=== PATIENT | male | born 1990 | race Caucasian/White ===

== ENCOUNTER 2016-08-12 13:14 | Inpatient (IN) | payer OTHER, MEDICAID ==
[~2016-08-12 13:14] MED LIST: ABILIFY10 MG PO; BUSPIRONE HCL5 MG PO; XANAX0.25 MG PO; ZYRTEC10 MG PO; [UNRECOGNIZED DRUG - OTHER]
[2016-08-12] MEDS ORDERED: AMOXICILLIN500 M1 PO (13:39)
[2016-08-12] MEDS ORDERED: FLUVOXAMINE MA100 M3 PO (13:40)
[2016-08-12] MEDS ORDERED: ALPRAZOLAM ER1 M1 PO (13:40)
[2016-08-12] MEDS ORDERED: NALTREXONE HCL50 MG PO ×2 (13:41→18:27)
[2016-08-12] MEDS ORDERED: XANAX1 M1 PO (13:46)
[2016-08-12] MEDS ORDERED: BUSPIRONE HCL10 M2 PO (13:46)
[2016-08-12] MEDS ORDERED: SEROQUEL X300 MG/TAB PO ×2 (13:47→18:28)
[2016-08-12] MEDS ORDERED: REVIA50 M1 PO ×2 (14:41)
[2016-08-12 15:34] LABS: BASO % 0.1 % (0-2); EOS % 0.2 % (0-7); EOSINOPHIL ABSOLUTE COUNT 0.1 tho/cmm (0.0-0.7); HCT-HEMATOCRIT 44.5 % (36.0-53.5); HGB-HEMOGLOBIN 15.6 gm/dl (13.5-17.0); IMMATURE GRANULOCYTES ABSOLUTE 0.28 tho/cmm (0-0.03); LYMPH % 6.8 % (20-45); LYMPH ABSOLUTE COUNT 1.9 tho/cmm (0.8-4.5); MCH (MEAN CORPUSCULAR HGB) 30.4 pg (28.0-32.0); MCHC MEAN CORPUSCULAR HGB CONC 35.1 % (32.0-36.0); MCV (MEAN CELL VOLUME) 86.6 fl (82.0-96.0); MEAN PLATELET VOLUME 8.8 cmc (9.4-12.4); MONO % 8.2 % (0-12); MONOCYTE ABSOLUTE COUNT 2.4 tho/cmm (0.0-1.2); NEUTROPHILS % 83.7 % (40-80); PLATELET COUNT 298 tho/cmm (150-450); RED BLOOD COUNT 5.14 mil/cmm (4.40-5.70); RED CELL DISTRIBUTION WIDTH 12.1 % (12.4-16.4); WHITE BLOOD COUNT 28.7 tho/cmm (4.0-10.0)
[2016-08-12 15:56] LABS: ALB/GLOB RATIO 0.5 (0.8-2.0); ALBUMIN 2.9 g/dl (3.5-5.0); ALKALINE PHOSPHATASE 85 U/L (33-138); ALT/SGPT 40 U/L (12-78); BILIRUBIN,TOTAL 0.6 mg/dl (0.0-1.5); BLOOD UREA NITROGEN 17 mg/dl (6-24); CALCIUM 9.1 mg/dl (8.5-10.5); CARBON DIOXIDE-VENOUS 26 mmol/L (22-32); CHLORIDE 100 mmol/l (96-110); CREATININE 1.01 mg/dl (0.60-1.30); GLUCOSE 125 mg/dL (70-110); SODIUM 135 mmol/L (135-145); eGFR VALUE FOR BLACK >90 mL/Min
[2016-08-12 15:57] LABS: ANION GAP 14 mmol/L (0-20); AST/SGOT 42 U/L (10-40)
[2016-08-12 16:11] LABS: PROCALCITONIN 2.26 ng/ml (0.05-0.09)
[2016-08-12 17:04] LABS: INR 1.5 INR (0.9-1.1); PROTHROMBIN TIME 17.3 SECONDS (9.0-13.6)
[2016-08-12 17:15] LABS: ALB/GLOB RATIO 0.5 (0.8-2.0); ALBUMIN 2.8 g/dl (3.5-5.0); ALKALINE PHOSPHATASE 81 U/L (33-138); ALT/SGPT 39 U/L (12-78); ANION GAP 12 mmol/L (0-20); AST/SGOT 29 U/L (10-40); BILIRUBIN,TOTAL 0.6 mg/dl (0.0-1.5); BLOOD UREA NITROGEN 17 mg/dl (6-24); CALCIUM 8.3 mg/dl (8.5-10.5); CARBON DIOXIDE-VENOUS 26 mmol/L (22-32); CHLORIDE 101 mmol/l (96-110); CREATININE 0.85 mg/dl (0.60-1.30); GLUCOSE 136 mg/dL (70-110); POTASSIUM 5.6 mmol/L (3.7-5.1); SODIUM 133 mmol/L (135-145); eGFR VALUE FOR BLACK >90 mL/Min
[2016-08-12 17:39] LABS: PROCALCITONIN 2.01 ng/ml (0.05-0.09)
[2016-08-12] MEDS ORDERED: XANAX0.5 M1 PO (18:27)
[2016-08-12] MEDS ORDERED: MIRALAX17 G2 PO (18:27)
[2016-08-12] MEDS ORDERED: ZYRTEC10 M7 PO (18:28)
[2016-08-12] MEDS ORDERED: FISH OIL 11000 MG/CA PO (18:28)
[2016-08-12 19:54] LABS: ABG CO2 ARTERIAL 23 mmol/L (21-27); ARTERIAL BLD GAS O2 SATURATION 100 % (95-98); ARTERIAL BLOOD GAS PCO2 38 mmHg (32-45); ARTERIAL PO2 183 mmHg (70-100); BICARBONATE 22 mmol/L (21-28); BLOOD GAS BASE EXCESS -2 mM/L (-/+3); PH 7.38 Units (7.35-7.45)
[2016-08-12 19:55] LABS: BODY FLUID TYPE PLEURAL
[2016-08-12 20:07] LABS: BODY FLUID APPEARANCE CLOUDY (CLEAR); BODY FLUID COLOR YELLOW (COLORLESS); BODY FLUID RBC COUNT 14000 cmm (0); BODY FLUID TYPE RIGHT PLEURAL; BODY FLUID VOLUME 35 ml; BODY FLUID WBC COUNT 17831 cmm
[2016-08-12 20:21] LABS: BODY FLUID EOSINOPHILS 1 %; BODY FLUID LYMPHOCYTES 3 %; BODY FLUID NEUTROPHILS 96 %
[2016-08-12 22:31] LABS: URINE APPEARANCE CLEAR; URINE BILIRUBIN NEGATIVE (NEG); URINE BLOOD NEGATIVE (NEG); URINE COLOR YELLOW; URINE GLUCOSE (UA) NEGATIVE (NEG); URINE KETONE NEGATIVE (NEG); URINE LEUKOCYTE ESTERASE NEGATIVE (NEG); URINE NITRITE NEGATIVE (NEG); URINE PROTEIN NEGATIVE (NEG); URINE SPECIFIC GRAVITY 1.005 (1.003-1.030)
[2016-08-13 03:49] LABS: BASO % 0.1 % (0-2); EOS % 0.3 % (0-7); EOSINOPHIL ABSOLUTE COUNT 0.1 tho/cmm (0.0-0.7); HCT-HEMATOCRIT 35.5 % (36.0-53.5); HGB-HEMOGLOBIN 11.9 gm/dl (13.5-17.0); IMMATURE GRANULOCYTES ABSOLUTE 0.11 tho/cmm (0-0.03); IMMATURE GRANULOCYTES PERCENT 0.5 % (0-0.3); LYMPH % 6.4 % (20-45); LYMPH ABSOLUTE COUNT 1.5 tho/cmm (0.8-4.5); MCH (MEAN CORPUSCULAR HGB) 29.5 pg (28.0-32.0); MCHC MEAN CORPUSCULAR HGB CONC 33.5 % (32.0-36.0); MCV (MEAN CELL VOLUME) 87.9 fl (82.0-96.0); MEAN PLATELET VOLUME 8.7 cmc (9.4-12.4); MONO % 6.9 % (0-12); MONOCYTE ABSOLUTE COUNT 1.6 tho/cmm (0.0-1.2); NEUTROPHIL ABSOLUTE COUNT 19.6 tho/cmm (1.6-8.0); NEUTROPHIL-AUTOMATED 19.6 tho/cmm (1.6-8.0); NEUTROPHILS % 85.8 % (40-80); PLATELET COUNT 271 tho/cmm (150-450); RED BLOOD COUNT 4.04 mil/cmm (4.40-5.70); RED CELL DISTRIBUTION WIDTH 12.3 % (12.4-16.4); WHITE BLOOD COUNT 22.9 tho/cmm (4.0-10.0)
[2016-08-13 04:02] LABS: BLOOD UREA NITROGEN 12 mg/dl (6-24); CARBON DIOXIDE-VENOUS 21 mmol/L (22-32); CHLORIDE 115 mmol/l (96-110); CREATININE 0.52 mg/dl (0.60-1.30); GLUCOSE 105 mg/dL (70-110); SODIUM 143 mmol/L (135-145); eGFR VALUE FOR BLACK >90 mL/Min
[2016-08-13 04:12] LABS: ANION GAP 11 mmol/L (0-20); CALCIUM 6.2 mg/dl (8.5-10.5); POTASSIUM 3.7 mmol/L (3.7-5.1)
[2016-08-13 05:34] LABS: ABG CO2 ARTERIAL 24 mmol/L (21-27); ARTERIAL BLD GAS O2 SATURATION 99 % (95-98); ARTERIAL BLOOD GAS PCO2 38 mmHg (32-45); ARTERIAL PO2 129 mmHg (70-100); BICARBONATE 22 mmol/L (21-28); BLOOD GAS BASE EXCESS -2 mM/L (-/+3); PH 7.39 Units (7.35-7.45)
[2016-08-13 05:46] LABS: PROCALCITONIN 1.64 ng/ml (0.05-0.09)
--- NOTE | 2016-08-13 06:02 | NUR ---
08/12/16- 193: BP 81/43 PROPOFOL PAUSED FOR HYPOTENSION. 1939: RADIOLOGIST CONFIRMED PLACEMENT OF ETT, NGT, AND CENTRAL LINE. OKAY TO USE. 1944: 89/58 PROPOFOL STARTED AT 20 MCG/KG/MIN. 08/13/16- 339: 86/47 PROPOFOL DECREASED TO 10 MCG/KG/MIN 0345: FENTANYL INCREASED TO 50MG/HR. 0350: NOTIFIED IMS OF HYPOTENSION, RECOMMENDATION TO CALL . 0356: DR. PAGAN NOTIFIED OF BP 89/42 MAP 58, CVP OF 14, AND LABILE BP IN LAST FEW HOURS. ORDER TO START LEVOPHED TO KEEP SBP >90. 0415: DG RODIRGUEZ APRN FOR IMS NOTIFIED OF CRITICAL CA2+ OF 6.2. ORDER FOR AN IONIZED CA2+. 0429: LEVOPHED GTT ON AT 0.03 MCG/KG/MIN 0442: INCREASED PROPOFOL TO 30 MCG/KG/ MIN BP 104/58 MAP 71, PT IS PULLING AT TUBES, SHAKING HEAD BACK AND FOURTH AND KICKING LEGS, AGITATED. 0601: IONIZED CA2+ PAGED TO DG RODRIGUEZ APRN.
[2016-08-14 04:22] LABS: ABG CO2 ARTERIAL 27 mmol/L (21-27); ARTERIAL BLD GAS O2 SATURATION 97 % (95-98); ARTERIAL BLOOD GAS PCO2 44 mmHg (32-45); BICARBONATE 25 mmol/L (21-28); BLOOD GAS BASE EXCESS 0 mM/L (-/+3); PH 7.38 Units (7.35-7.45)
[2016-08-14 04:25] LABS: ARTERIAL PO2 92 mmHg (70-100)
[2016-08-14 04:50] LABS: BASO % 0.1 % (0-2); HCT-HEMATOCRIT 32.5 % (36.0-53.5); HGB-HEMOGLOBIN 10.6 gm/dl (13.5-17.0); IMMATURE GRANULOCYTES ABSOLUTE 0.08 tho/cmm (0-0.03); IMMATURE GRANULOCYTES PERCENT 0.5 % (0-0.3); LYMPH % 5.9 % (20-45); MCHC MEAN CORPUSCULAR HGB CONC 32.6 % (32.0-36.0); MEAN PLATELET VOLUME 8.7 cmc (9.4-12.4); MONO % 6.7 % (0-12); MONOCYTE ABSOLUTE COUNT 1.2 tho/cmm (0.0-1.2); NEUTROPHIL ABSOLUTE COUNT 15.3 tho/cmm (1.6-8.0); NEUTROPHIL-AUTOMATED 15.3 tho/cmm (1.6-8.0); NEUTROPHILS % 86.8 % (40-80); PLATELET COUNT 287 tho/cmm (150-450); RED BLOOD COUNT 3.65 mil/cmm (4.40-5.70); RED CELL DISTRIBUTION WIDTH 12.4 % (12.4-16.4); WHITE BLOOD COUNT 17.6 tho/cmm (4.0-10.0)
[2016-08-14 04:56] LABS: ANION GAP 9 mmol/L (0-20); BLOOD UREA NITROGEN 12 mg/dl (6-24); CARBON DIOXIDE-VENOUS 28 mmol/L (22-32); CHLORIDE 109 mmol/l (96-110); CREATININE 0.67 mg/dl (0.60-1.30); POTASSIUM 4.1 mmol/L (3.7-5.1); SODIUM 142 mmol/L (135-145); eGFR VALUE FOR BLACK >90 mL/Min
[2016-08-14 05:01] LABS: CALCIUM 7.9 mg/dl (8.5-10.5); GLUCOSE 162 mg/dL (70-110)
[2016-08-15 04:53] LABS: BASO % 0.1 % (0-2); EOS % 0.6 % (0-7); EOSINOPHIL ABSOLUTE COUNT 0.1 tho/cmm (0.0-0.7); HCT-HEMATOCRIT 30.3 % (36.0-53.5); HGB-HEMOGLOBIN 9.8 gm/dl (13.5-17.0); IMMATURE GRANULOCYTES ABSOLUTE 0.11 tho/cmm (0-0.03); IMMATURE GRANULOCYTES PERCENT 0.8 % (0-0.3); LYMPH % 16.2 % (20-45); LYMPH ABSOLUTE COUNT 2.2 tho/cmm (0.8-4.5); MCH (MEAN CORPUSCULAR HGB) 29.2 pg (28.0-32.0); MCHC MEAN CORPUSCULAR HGB CONC 32.3 % (32.0-36.0); MCV (MEAN CELL VOLUME) 90.2 fl (82.0-96.0); MEAN PLATELET VOLUME 8.6 cmc (9.4-12.4); MONO % 6.4 % (0-12); MONOCYTE ABSOLUTE COUNT 0.9 tho/cmm (0.0-1.2); NEUTROPHIL ABSOLUTE COUNT 10.2 tho/cmm (1.6-8.0); NEUTROPHIL-AUTOMATED 10.2 tho/cmm (1.6-8.0); NEUTROPHILS % 75.9 % (40-80); PLATELET COUNT 269 tho/cmm (150-450); RED BLOOD COUNT 3.36 mil/cmm (4.40-5.70); RED CELL DISTRIBUTION WIDTH 12.8 % (12.4-16.4); WHITE BLOOD COUNT 13.4 tho/cmm (4.0-10.0)
[2016-08-15 05:16] LABS: ANION GAP 10 mmol/L (0-20); BLOOD UREA NITROGEN 16 mg/dl (6-24); CALCIUM 7.8 mg/dl (8.5-10.5); CARBON DIOXIDE-VENOUS 28 mmol/L (22-32); CHLORIDE 110 mmol/l (96-110); CREATININE 0.49 mg/dl (0.60-1.30); GLUCOSE 130 mg/dL (70-110); POTASSIUM 3.9 mmol/L (3.7-5.1); SODIUM 144 mmol/L (135-145); eGFR VALUE FOR BLACK >90 mL/Min
[2016-08-15 05:56] LABS: ABG CO2 ARTERIAL 30 mmol/L (21-27); ARTERIAL BLD GAS O2 SATURATION 98 % (95-98); ARTERIAL BLOOD GAS PCO2 49 mmHg (32-45); BICARBONATE 28 mmol/L (21-28); BLOOD GAS BASE EXCESS 2 mM/L (-/+3); PH 7.37 Units (7.35-7.45)
[2016-08-15 05:58] LABS: ARTERIAL PO2 121 mmHg (70-100)
[2016-08-15 13:13] LABS: ABG CO2 ARTERIAL 29 mmol/L (21-27); ARTERIAL BLD GAS O2 SATURATION 94 % (95-98); ARTERIAL BLOOD GAS PCO2 46 mmHg (32-45); ARTERIAL PO2 71 mmHg (70-100); BICARBONATE 27 mmol/L (21-28); BLOOD GAS BASE EXCESS 3 mM/L (-/+3)
[2016-08-16 04:17] LABS: BASO % 0.2 % (0-2); EOS % 1.7 % (0-7); EOSINOPHIL ABSOLUTE COUNT 0.2 tho/cmm (0.0-0.7); HCT-HEMATOCRIT 31.9 % (36.0-53.5); HGB-HEMOGLOBIN 10.2 gm/dl (13.5-17.0); IMMATURE GRANULOCYTES ABSOLUTE 0.17 tho/cmm (0-0.03); IMMATURE GRANULOCYTES PERCENT 1.2 % (0-0.3); LYMPH % 21.4 % (20-45); MCV (MEAN CELL VOLUME) 90.6 fl (82.0-96.0); MEAN PLATELET VOLUME 8.4 cmc (9.4-12.4); MONO % 8.9 % (0-12); MONOCYTE ABSOLUTE COUNT 1.3 tho/cmm (0.0-1.2); NEUTROPHIL ABSOLUTE COUNT 9.4 tho/cmm (1.6-8.0); NEUTROPHIL-AUTOMATED 9.4 tho/cmm (1.6-8.0); NEUTROPHILS % 66.6 % (40-80); PLATELET COUNT 336 tho/cmm (150-450); RED BLOOD COUNT 3.52 mil/cmm (4.40-5.70); RED CELL DISTRIBUTION WIDTH 12.8 % (12.4-16.4); WHITE BLOOD COUNT 14.1 tho/cmm (4.0-10.0)
[2016-08-16 04:26] LABS: ANION GAP 9 mmol/L (0-20); BLOOD UREA NITROGEN 16 mg/dl (6-24); CALCIUM 7.8 mg/dl (8.5-10.5); CARBON DIOXIDE-VENOUS 31 mmol/L (22-32); CHLORIDE 108 mmol/l (96-110); CREATININE 0.39 mg/dl (0.60-1.30); GLUCOSE 89 mg/dL (70-110); POTASSIUM 3.5 mmol/L (3.7-5.1); SODIUM 144 mmol/L (135-145); eGFR VALUE FOR BLACK >90 mL/Min
[2016-08-16 07:18] LABS: ABG CO2 ARTERIAL 32 mmol/L (21-27); ARTERIAL BLD GAS O2 SATURATION 94 % (95-98); ARTERIAL BLOOD GAS PCO2 46 mmHg (32-45); ARTERIAL PO2 70 mmHg (70-100); BICARBONATE 30 mmol/L (21-28); BLOOD GAS BASE EXCESS 6 mM/L (-/+3); PH 7.43 Units (7.35-7.45)
[2016-08-17 04:32] LABS: ABG CO2 ARTERIAL 33 mmol/L (21-27); ARTERIAL BLD GAS O2 SATURATION 98 % (95-98); ARTERIAL BLOOD GAS PCO2 47 mmHg (32-45); BICARBONATE 31 mmol/L (21-28); BLOOD GAS BASE EXCESS 7 mM/L (-/+3); PH 7.44 Units (7.35-7.45)
[2016-08-17 04:33] LABS: ARTERIAL PO2 93 mmHg (70-100)
[2016-08-17 04:55] LABS: BASO % 0.1 % (0-2); EOS % 0.7 % (0-7); EOSINOPHIL ABSOLUTE COUNT 0.1 tho/cmm (0.0-0.7); HCT-HEMATOCRIT 30.5 % (36.0-53.5); HGB-HEMOGLOBIN 10.2 gm/dl (13.5-17.0); IMMATURE GRANULOCYTES ABSOLUTE 0.13 tho/cmm (0-0.03); IMMATURE GRANULOCYTES PERCENT 1.1 % (0-0.3); LYMPH % 20.3 % (20-45); LYMPH ABSOLUTE COUNT 2.4 tho/cmm (0.8-4.5); MCH (MEAN CORPUSCULAR HGB) 29.5 pg (28.0-32.0); MCHC MEAN CORPUSCULAR HGB CONC 33.4 % (32.0-36.0); MCV (MEAN CELL VOLUME) 88.2 fl (82.0-96.0); MEAN PLATELET VOLUME 8.6 cmc (9.4-12.4); MONO % 9.4 % (0-12); MONOCYTE ABSOLUTE COUNT 1.1 tho/cmm (0.0-1.2); NEUTROPHIL ABSOLUTE COUNT 8.2 tho/cmm (1.6-8.0); NEUTROPHIL-AUTOMATED 8.2 tho/cmm (1.6-8.0); NEUTROPHILS % 68.4 % (40-80); PLATELET COUNT 359 tho/cmm (150-450); RED BLOOD COUNT 3.46 mil/cmm (4.40-5.70); RED CELL DISTRIBUTION WIDTH 12.1 % (12.4-16.4)
[2016-08-17 05:00] LABS: ALB/GLOB RATIO 0.5 (0.8-2.0); ALBUMIN 1.9 g/dl (3.5-5.0); ALKALINE PHOSPHATASE 81 U/L (33-138); ALT/SGPT 83 U/L (12-78); ANION GAP 11 mmol/L (0-20); AST/SGOT 73 U/L (10-40); BILIRUBIN,TOTAL 0.5 mg/dl (0.0-1.5); BLOOD UREA NITROGEN 17 mg/dl (6-24); CARBON DIOXIDE-VENOUS 32 mmol/L (22-32); CHLORIDE 104 mmol/l (96-110); CREATININE 0.54 mg/dl (0.60-1.30); GLUCOSE 90 mg/dL (70-110); SODIUM 143 mmol/L (135-145); eGFR VALUE FOR BLACK >90 mL/Min
[2016-08-18 04:17] LABS: BASO % 0.1 % (0-2); EOS % 0.8 % (0-7); EOSINOPHIL ABSOLUTE COUNT 0.1 tho/cmm (0.0-0.7); HCT-HEMATOCRIT 33.5 % (36.0-53.5); HGB-HEMOGLOBIN 11.2 gm/dl (13.5-17.0); IMMATURE GRANULOCYTES ABSOLUTE 0.18 tho/cmm (0-0.03); IMMATURE GRANULOCYTES PERCENT 1.2 % (0-0.3); LYMPH % 18.2 % (20-45); LYMPH ABSOLUTE COUNT 2.6 tho/cmm (0.8-4.5); MCHC MEAN CORPUSCULAR HGB CONC 33.4 % (32.0-36.0); MCV (MEAN CELL VOLUME) 86.8 fl (82.0-96.0); MEAN PLATELET VOLUME 8.5 cmc (9.4-12.4); NEUTROPHIL ABSOLUTE COUNT 10.5 tho/cmm (1.6-8.0); NEUTROPHIL-AUTOMATED 10.5 tho/cmm (1.6-8.0); NEUTROPHILS % 72.7 % (40-80); PLATELET COUNT 376 tho/cmm (150-450); RED BLOOD COUNT 3.86 mil/cmm (4.40-5.70); RED CELL DISTRIBUTION WIDTH 11.9 % (12.4-16.4); WHITE BLOOD COUNT 14.5 tho/cmm (4.0-10.0)
[2016-08-18 04:28] LABS: ANION GAP 10 mmol/L (0-20); BLOOD UREA NITROGEN 15 mg/dl (6-24); CALCIUM 8.3 mg/dl (8.5-10.5); CARBON DIOXIDE-VENOUS 31 mmol/L (22-32); CHLORIDE 104 mmol/l (96-110); CREATININE 0.46 mg/dl (0.60-1.30); GLUCOSE 106 mg/dL (70-110); POTASSIUM 3.7 mmol/L (3.7-5.1); SODIUM 141 mmol/L (135-145); eGFR VALUE FOR BLACK >90 mL/Min
[2016-08-19 05:26] LABS: BASO % 0.3 % (0-2); EOS % 2.2 % (0-7); EOSINOPHIL ABSOLUTE COUNT 0.3 tho/cmm (0.0-0.7); HCT-HEMATOCRIT 36.3 % (36.0-53.5); HGB-HEMOGLOBIN 12.2 gm/dl (13.5-17.0); IMMATURE GRANULOCYTES ABSOLUTE 0.32 tho/cmm (0-0.03); LYMPH % 27.6 % (20-45); LYMPH ABSOLUTE COUNT 4.3 tho/cmm (0.8-4.5); MCH (MEAN CORPUSCULAR HGB) 29.1 pg (28.0-32.0); MCHC MEAN CORPUSCULAR HGB CONC 33.6 % (32.0-36.0); MCV (MEAN CELL VOLUME) 86.6 fl (82.0-96.0); MEAN PLATELET VOLUME 8.7 cmc (9.4-12.4); MONO % 9.2 % (0-12); MONOCYTE ABSOLUTE COUNT 1.5 tho/cmm (0.0-1.2); NEUTROPHIL ABSOLUTE COUNT 9.2 tho/cmm (1.6-8.0); NEUTROPHIL-AUTOMATED 9.2 tho/cmm (1.6-8.0); NEUTROPHILS % 58.7 % (40-80); PLATELET COUNT 431 tho/cmm (150-450); RED BLOOD COUNT 4.19 mil/cmm (4.40-5.70); WHITE BLOOD COUNT 15.7 tho/cmm (4.0-10.0)
[2016-08-19 05:31] LABS: ANION GAP 9 mmol/L (0-20); BLOOD UREA NITROGEN 12 mg/dl (6-24); CARBON DIOXIDE-VENOUS 29 mmol/L (22-32); CHLORIDE 107 mmol/l (96-110); CREATININE 0.47 mg/dl (0.60-1.30); GLUCOSE 87 mg/dL (70-110); SODIUM 142 mmol/L (135-145); eGFR VALUE FOR BLACK >90 mL/Min
[2016-08-19 05:40] LABS: POTASSIUM 2.9 mmol/L (3.7-5.1)
[2016-08-19] MEDS ORDERED: AUGMENTIN 875-1 EAC2 PO (16:15)
[2016-08-19] MEDS ORDERED: DELTASONE20 MG PO (16:16)
[2016-08-19] MEDS ORDERED: MIRALAX17 G2 PO (16:16)
[2016-08-19] MEDS ORDERED: PERCOCET 5-3251 EACH PO (16:16)
== END 2016-08-19 17:15 | DRG 853 ==
LOC: EDMED 13:14 → EMR2 16:01 → CCU 16:14 → ORW 08-13 11:24 → CCU 08-13 14:45
PROVIDERS: Emergency Medicine; Family Medicine; Internal Medicine; Internal Medicine Pulmonary Disease; Nurse Practitioner; ADMIT Internal Medicine
PROC: 0BJ08ZZ Inspection of Tracheobronchial Tree, Via Natural or Artificial Opening Endoscopic (ICD-10-PCS; 2016-08-12)
PROC: 0W9930Z Drainage of Right Pleural Cavity with Drainage Device, Percutaneous Approach (ICD-10-PCS; 2016-08-12)
PROC: 0BH17EZ Insertion of Endotracheal Airway into Trachea, Via Natural or Artificial Opening (ICD-10-PCS; 2016-08-12)
PROC: 5A1945Z Respiratory Ventilation, 24-96 Consecutive Hours (ICD-10-PCS; 2016-08-12)
PROC: 0BDN4ZZ Extraction of Right Pleura, Percutaneous Endoscopic Approach (ICD-10-PCS; principal; 2016-08-13)
DX: A41.9 Sepsis, unspecified organism (principal); J15.6 Pneumonia due to other Gram-negative bacteria; J96.01 Acute respiratory failure with hypoxia; J86.9 Pyothorax without fistula; J94.8 Other specified pleural conditions; F84.0 Autistic disorder; R65.20 Severe sepsis without septic shock; F41.9 Anxiety disorder, unspecified; E66.9 Obesity, unspecified; J30.9 Allergic rhinitis, unspecified; E83.51 Hypocalcemia; K04.7 Periapical abscess without sinus; Z68.42 Body mass index [BMI] 45.0-49.9, adult
CPT/HCPCS: C1729; C1751; C9113; C9290; J0295; J0330; J0456; J1630; J1650; J1720; J2060; J2704; J3010; J3370; J3480; J7030; J7040; J7050; J7512; L4396; Q9967